=== PATIENT | female | born 1960 | race Caucasian/White ===

== ENCOUNTER 2024-02-05 12:26 | Emergency (ER) | payer BC ==
--- NOTE | 2024-02-05 12:47 | ED Physician Documentation ---
PD HPI OPHTHO - Stated complaint Stated Complaint: BLACK MASS LT EYE - History obtained from History obtained from: Patient - Additional information Additional information: For last few hours she chronically has poor vision and floaters. Wears thick glasses. Starting a couple of hours ago she developed a very large floater in the left eye in the inferolateral vision. It is painless. PD PAST MEDICAL HISTORY - Present Medications Home Medications: Ambulatory Orders Medication Instructions Recorded Confirmed Atorvastatin [Lipitor] 10 mg ORAL DAILY 02/05/24 02/05/24 - Allergies Allergies/Adverse Reactions: Allergies Allergy/AdvReac Type Severity Reaction Status Date / Time No Known Drug Allergies Allergy Verified 02/05/24 12:47 PD ED PE NORMAL - Vitals Vital signs reviewed: Yes - General General: Alert and oriented X 3, No acute distress - HEENT HEENT: PERRL, EOMI, Other (Central retina looks fairly normal on nondilated exam.) - Neuro Neuro: Alert and oriented X 3, cooker pie filling 2-12 intact Eye Opening: Spontaneous Motor: Obeys Commands Verbal: Oriented GCS Score: 15 Results - Vitals Vitals: Vital Signs - 24 hr 02/05/24 12:38 Temperature 37 C Heart Rate 85 Respiratory 16 Rate Blood Pressure 153/86 H O2 Saturation 99 Oxygen O2 Source Room air PD Medical Decision Making - ED course ED course: She presents with symptoms that could be vitreous versus retinal detachment. No on-call ophthalmology here. Patient amenable to transfer for evaluation to rule out retinal detachment. Subsequently her symptoms resolved while here, and I was able to get a hold of Dr. Kenyon, local electronics detail draftsperson who felt that this was probably not vision threatening and could be worked up outpatient. It frankly did sound more like a vitreous detachment than anything else. Departure - Departure Disposition: 01 Home, Self Care Clinical Impression: Vitreous detachment of left eye Condition: Good Record reviewed to determine appropriate education?: Yes Instructions: Flashes and Floaters Comments: Your symptomatology sounds like a vitreous detachment which is generally handled conservatively i.e. does not need any specific intervention. Retinal detachment is less likely. You should follow-up with your electronics detail draftsperson or in home aide on Wednesday for a dilated eye exam. Return for new or worsening symptoms.
[2024-02-05 14:05] VITALS: BP 149/64; O2SAT 97
== END 2024-02-05 13:58 | disposition home or self-care (01) ==
LOC: ED 12:26
DX: H43.812 Vitreous degeneration, left eye (principal)
CPT/HCPCS: 99282; 99283